=== PATIENT | female | born 1965 | race Hispanic/Latino ===

== ENCOUNTER 2023-12-06 14:56 | Emergency (ER) | payer SELFPAY ==
--- NOTE | ~2023-12-06 | XR_ITS ---
EXAM: XR knee LT min 4V DATE: 12/06/2023 15:21 HISTORY: anterior to medial left knee pain after fall . COMPARISON: None available. FINDINGS: Decreased mineralization. No fracture or dislocation. No lytic or blastic lesion. Mild tri compartmental osteoarthritis. No erosion or periosteal change. Soft tissues within normal limits. IMPRESSION: No acute osseous finding in the left knee. Reviewed, dictated and finalized at location K.
--- NOTE | 2023-12-06 15:02 | ED.LOWEXIN ---
HPI - Extremity Injury (Lower) General Chief Complaint: Extremity Injury, Lower Stated Complaint: left knee pain after fall Time Seen by Provider: 12/06/23 15:02 Source: patient Mode of arrival: ambulatory Limitations: no limitations History of Present Illness HPI Narrative: Karrie is a 58-year-old female patient presenting to the clinic today with complaints of ground level fall after slipping on a wet floor at home on Wednesday and landing on the left knee. Reports pain to the anterior and medial knee. Related Data Home Medications Medication Instructions Recorded Confirmed atorvastatin 40 mg tablet 40 mg PO DAILY 12/06/23 12/06/23 famotidine 20 mg tablet 20 mg PO BID 12/06/23 12/06/23 fenofibrate nanocrystallized 145 145 mg PO DAILY 12/06/23 12/06/23 mg tablet hydrochlorothiazide 25 mg tablet 25 mg PO DAILY 12/06/23 12/06/23 lisinopril 2.5 mg tablet 2.5 mg PO DAILY 12/06/23 12/06/23 metformin 500 mg tablet 500 mg PO DAILY 12/06/23 12/06/23 montelukast 10 mg tablet 10 mg PO DAILY 12/06/23 12/06/23 Allergies Allergy/AdvReac Type Severity Reaction Status Date / Time No Known Allergies Allergy Verified 12/06/23 15:12 Review of Systems Review of Systems: Pertinent positives per HPI. Patient denies any fever, chills, rash, headache, visual changes, dizziness, cough, runny nose, sore throat, shortness of breath, chest pain, palpitations, nausea, vomiting, diarrhea, constipation, abdominal pain, or any urinary issues. PMFSH Comments At the time of my signature, I reviewed and agree with the nursing past medical, surgical, social, and family history. There is no relevant family history pertinent to the patient complaint. Exam Narrative: General: Well-developed, well nourished, in no apparent distress Head: Normocephalic, atraumatic. Cardio: Regular rate and rhythm, s1 and s2 normal, no murmur appreciated. Resp: Clear to auscultation bilaterally, no rhonchi, rales, wheezing or rubs. Musculoskeletal: No deformity, mild swelling to the left knee when compared to the right knee with a healing abrasion to the lower left anterior knee, tender to palpation over the entire knee joint but most pain is over the medial and lateral knee, pain is worse with walking/bearing weight and climbing up stairs, grossly normal range of motion, muscle strength strong and equal, peripheral pulse strong, no edema, no cyanosis, normal gait and station Course Course Emergency Course: Portions of this record may have been created with voice recognition software. Level of Care: Express Care Visit Vital Signs Vital signs: Vital signs reviewed MDM - Extremity Injury (Lower) Imaging Data Radiologist's impression: ITS Impressions Knee X-Ray 12/06/23 15:28 IMPRESSION: No acute osseous finding in the left knee. Discharge Plan Discharge Clinical Impression: Abrasion, Acute pain of left knee Contusion of knee Qualifiers: Encounter type: initial encounter Laterality: left Qualified Code(s): S80.02XA - Contusion of left knee, initial encounter Osteoarthritis Qualifiers: Osteoarthritis location: knee Osteoarthritis type: primary Laterality: left Qualified Code(s): M17.12 - Unilateral primary osteoarthritis, left knee Patient Disposition: Home, Self-Care Condition: Stable Instructions: Antibiotic Form, Osteoarthritis (ED), Contusion in Adults (ED), Knee Pain (ED), Hinged Knee Brace (ED) Additional Instructions: Descanse, coloque hielo, el?vese y use kaelyn venda protectora seg?n las indicaciones. Tylenol/motrin para el dolor joshua se jaspreet?. Puede usar kaelyn rodillera con bisagras cuando deambula Poco a poco soporta peso No correr ni hacer deportes hasta que se recupere. [place] un seguimiento con jean PCP si los s?ntomas persisten m?s de 1 semana. Patient Language: Yakut Prescriptions: No Action atorvastatin 40 mg tablet 40 mg PO DAILY metformin 500 mg tablet 500 mg PO DAILY
[2023-12-06 15:07] VITALS: BP 142/90; PULSE 72; RESP 16; TEMP 36.4; O2SAT 100
== END 2023-12-06 15:58 | disposition home or self-care (01) ==
PROVIDERS: Emergency Provider Nurse Practitioner Family; PCP Registered Nurse
DX: S80.212A Abrasion, left knee, initial encounter (principal); W01.0XXA Fall on same level from slipping, tripping and stumbling without subsequent striking against object, initial encounter; S80.02XA Contusion of left knee, initial encounter; M17.12 Unilateral primary osteoarthritis, left knee; E78.00 Pure hypercholesterolemia, unspecified; I10 Essential (primary) hypertension; E11.9 Type 2 diabetes mellitus without complications
CPT/HCPCS: 73564; 99213; G0463